=== PATIENT | female | born 1975 | race Hispanic/Latino ===

== ENCOUNTER 2019-11-21 23:37 | Emergency (ER) | payer BC ==
[2019-11-22 00:35] LABS: Absolute Lymphocytes (CBC) 2.2 K/uL (0.7-4.9); Basophils % 0.9 % (0-1.3); Hematocrit 37.6 % (36.0-45.0); Lymphocytes % 26.1 % (15.3-44.8); MPV 10.5 fL (7.6-11.3); RBC Red Blood Cell Count 4.52 M/uL (3.86-4.86)
[2019-11-22 00:36] LABS: Protime INR 0.98
[2019-11-22 00:48] LABS: ALT/SGPT 37 U/L (12-78); AST/SGOT 25 U/L (15-37); Albumin 3.3 g/dL (3.4-5.0); Alkaline Phosphatase 99 U/L (45-117); BUN Blood Urea Nitrogen 11 mg/dL (7-18); Bicarbonate 28 mmol/L (21-32); Bilirubin Direct < 0.1 mg/dL (0-0.2); Bilirubin Total 0.2 mg/dL (0.2-1.0); Glucose Level 199 mg/dL (74-106); Magnesium 2.1 mg/dL (1.8-2.4); NT PRO-BNP 14 pg/mL (<125); Potassium 3.4 mmol/L (3.5-5.1); Protein, Total 7.6 g/dL (6.4-8.2); Sodium Level 141 mmol/L (136-145); Troponin (Emerg Dept Use Only) < 0.02 ng/mL (0.0-0.045)
--- NOTE | 2019-11-22 01:40 | EDPHYS ---
Physician Documentation [facility] Name: Machelle Brito Age: 44 yrs Sex: Female : 1975 Arrival Date: 11/21/2019 Time: 23:42 Bed 8 Private MD: ED Physician Isidro Roblero HPI: 11/21 04:13 This 44 yrs old Female presents to ER via Ambulatory with complaints of Chest tw4 Tightness. 04:13 The patient presents with a history of heart racing. Context: The symptoms occur tw4 without known cause. Onset: The symptoms/episode began/occurred just prior to arrival. Duration: The patient or guardian reports multiple episodes, that wax and wane, with no pattern. Modifying factors: The symptoms are aggravated by nothing. The symptoms are alleviated by nothing. Associated signs and symptoms: Pertinent positives: chest pain. Severity of symptoms: At their worst the symptoms were mild in the emergency department the symptoms have resolved. The patient has not experienced similar symptoms in the past. 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 - Social history:: Smoking status: Patient denies any tobacco usage or history of. Patient/guardian denies using alcohol, street drugs. ROS: 11/21 04:13 Constitutional: Negative for fever, chills, and weight loss, Eyes: Negative for injury, tw4 pain, redness, and discharge, Respiratory: Negative for shortness of breath, cough, wheezing, and pleuritic chest pain, Abdomen/GI: Negative for abdominal pain, nausea, vomiting, diarrhea, and constipation, Back: Negative for injury and pain, MS/Extremity: Negative for injury and deformity, Skin: Negative for injury, rash, and discoloration, Neuro: Negative for headache, weakness, numbness, tingling, and seizure. Cardiovascular: Positive for chest pain, palpitations, Negative for edema, orthopnea. Exam: 04:13 Constitutional: This is a well developed, well nourished patient who is awake, alert, tw4 and in no acute distress. Head/Face: Normocephalic, atraumatic. Chest/axilla: Normal chest wall appearance and motion. Nontender with no deformity. No lesions are appreciated. Cardiovascular: Regular rate and rhythm with a normal S1 and S2. No gallops, murmurs, or rubs. Normal PMI, no JVD. No pulse deficits. Respiratory: Lungs have equal breath sounds bilaterally, clear to auscultation and percussion. No rales, rhonchi or wheezes noted. No increased work of breathing, no retractions or nasal flaring. Abdomen/GI: Soft, non-tender, with normal bowel sounds. No distension or tympany. No guarding or rebound. No evidence of tenderness throughout. Back: No spinal tenderness. No costovertebral tenderness. Full range of motion. MS/ Extremity: Pulses equal, no cyanosis. Neurovascular intact. Full, normal range of motion. Neuro: Awake and alert, GCS 15, oriented to person, place, time, and situation. Cranial nerves II-XII grossly intact. Motor strength 5/5 in all extremities. Sensory grossly intact. Cerebellar exam normal. Normal gait. Vital Signs: 11/20 23:51 BP 137 / 85; Pulse 89; Resp 16 S; Temp 98.7(O); Pulse Ox 98% on R/A; Weight 113.4 kg bb (R); Height 5 ft. 2 in. (157.48 cm) (R); Pain 5/10; 11/21 01:00 BP 141 / 100; Pulse 90; Resp 19; Pulse Ox 98% ; rr5 01:53 BP 121 / 70; Pulse 75; Resp 17; Temp 97.9; Pulse Ox 99% ; rr5 11/20 23:51 Body Mass Index 45.73 (113.40 kg, 157.48 cm) bb MDM: 11/20 23:53 Patient medically screened. tw4 11/21 04:13 Differential diagnosis: arrythmia, dehydration, stress disorder. Data reviewed: vital tw4 signs, nurses notes. Data reviewed: lab test result(s), cardiac enzymes, electrolytes, hepatic panel. Data interpreted: Pulse oximetry: Interpretation: normal. Test interpretation: by ED physician or midlevel provider: not applicable. Counseling: I had a detailed discussion with the patient and/or guardian regarding: the historical points, exam findings, and any diagnostic results supporting the discharge/admit diagnosis. Special discussion: I discussed with the patient/guardian in detail that at this point there is no indication for admission to the hospital. It is understood, however, that if the symptoms persist or worsen the patient needs to return immediately for re-evaluation. Special discussion: Based on the patient's history, exam, and Dx evaluation, there is no indication for emergent intervention or inpatient Tx. It is understood by the patient/guardian that if the Sx's persist or worsen they need to return immediately for re-evaluation. 11/20 23:44 Order name: Basic Metabolic Panel; Complete Time: 01:37 11/21 01:37 Interpretation: Normal except: K 3.4; GLUC 199; GFR 67. 11/20 23:44 Order name: CBC with Diff; Complete Time: 01:37 11/21 01:38 Interpretation: Within normal limits. 11/20 23:44 Order name: LFT's; Complete Time: 01:37 11/21 01:37 Interpretation: Normal except: ALB 3.3; GLOB 4.3; A/G 0.8. 11/20 23:44 Order name: Magnesium; Complete Time: 01:37 11/21 01:38 Interpretation: Within normal limits: MG 2.1. 11/20 23:44 Order name: NT PRO-BNP; Complete Time: 01:37 11/21 01:38 Interpretation: Within normal limits: NT PRO-BNP 14. 11/20 23:44 Order name: PT-INR; Complete Time: 01:37 11/21 01:38 Interpretation: Within normal limits: PT 11.6. 11/20 23:44 Order name: Troponin (emerg Dept Use Only); Complete Time: 01:37 11/21 01:38 Interpretation: Within normal limits: TROPED < 0.02. 11/20 23:44 Order name: XRAY Chest (1 view) 11/20 23:44 Order name: EKG; Complete Time: 23:45 11/20 23:44 Order name: Cardiac monitoring; Complete Time: 00:18 tw4 04/22 23:44 Order name: EKG - Nurse/Tech; Complete Time: 00:05 4 11/20 23:44 Order name: IV Saline Lock; Complete Time: 00:18 4 11/20 23:44 Order name: Labs collected and sent; Complete Time: 00:18 4 11/20 23:44 Order name: O2 Per Protocol; Complete Time: 00:06 4 11/20 23:44 Order name: O2 Sat Monitoring; Complete Time: 00:06 4 EC:13 Rate is 91 beats/min. Rhythm is regular. QRS [place] is Normal. LA interval is normal. QRS tw4 interval is normal. QT interval is normal. No Q waves. T waves are Normal. No ST changes noted. Clinical impression: Normal ECG. Interpreted by me. Reviewed by me. Administered Medications: 01:45 Drug: Potassium Effervescent Tablet 50 mEq Route: PO; rr5 01:57 Follow up: Response: No adverse reaction; Medication administered at discharge. rr5 Disposition: 11/22/19 01:39 Discharged to Home. Impression: Palpitations, Hypokalemia. - Condition is Stable. - Discharge Instructions: Potassium Content of Foods, Holter Monitoring, Palpitations, Palpitations, [id number], Hypokalemia, Cardiac Event Monitoring. - Medication Reconciliation Form, Thank You Letter, Antibiotic Education, Prescription Opioid Use form. - Follow up: Private Physician; When: Upon discharge from the Emergency Department; Reason: Recheck today's complaints, Continuance of care, Re-evaluation by your physician. Follow up: Garfield Flores MD; When: 1 week; Reason: Recheck today's complaints, Continuance of care, Re-evaluation by your physician. Follow up: Gaurav Cerna MD; When: 1 week; Reason: Recheck today's complaints, Continuance of care, Re-evaluation by your physician. - Problem is new. - Symptoms have improved. Signatures: Dispatcher [employer] EDMachelle Guajardo, RN RN Isidro Marina MD MD tw4 Zeeshan Dietrich RN RN rr5 Corrections: (The following items were deleted from the chart) 01:39 01:39 11/22/2019 01:39 Discharged to Home. Impression: Palpitations; Hypokalemia. tw4 Condition is Stable. Forms are Medication Reconciliation Form, Thank You Letter, Antibiotic Education, Prescription Opioid Use. Follow up: Private Physician; When: Upon discharge from the Emergency Department; Reason: Recheck today's complaints, Continuance of care, Re-evaluation by your physician. Problem is new. Symptoms have improved. tw4 01:58 01:39 11/22/2019 01:39 Discharged to Home. Impression: Palpitations; Hypokalemia. rr5 Condition is Stable. Discharge Instructions: Potassium Content of Foods, Holter Monitoring, Palpitations, Palpitations, [id number], Hypokalemia, Cardiac Event Monitoring. Forms are Medication Reconciliation Form, Thank You Letter, Antibiotic Education, Prescription Opioid Use. Follow up: Private Physician; When: Upon discharge from the Emergency Department; Reason: Recheck today's complaints, Continuance of care, Re-evaluation by your physician. Follow up: Garfield Flores; When: 1 week; Reason: Recheck today's complaints, Continuance of care, Re-evaluation by your physician. Follow up: Gaurav Cerna; When: 1 week; Reason: Recheck today's complaints, Continuance of care, Re-evaluation by your physician. Problem is new. Symptoms have improved. tw4
--- NOTE | 2019-11-22 01:40 | ER ---
Nurse's Notes [facility] Name: Machelle Brito Age: 44 yrs Sex: Female : 1975 Arrival Date: 11/21/2019 Time: 23:42 Bed 8 Private MD: Diagnosis: Palpitations;Hypokalemia Presentation: 11/20 23:51 Chief complaint: Patient states: she has been feeling intermittent heart fluttering the bb last couple of days which got worse tonight with some chest pain radiating to her back for a few seconds. Coronavirus screen: Proceed with normal triage. Ebola Screen: No symptoms or risks identified at this time. Initial Sepsis Screen: Does the patient meet any 2 criteria? No. Patient's initial sepsis screen is negative. Does the patient have a suspected source of infection? No. Patient's initial sepsis screen is negative. Risk Assessment: Do you want to hurt yourself or someone else? Patient reports no desire to harm self or others. Onset of symptoms was November 19, 2019. 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 - Social history:: Smoking status: Patient denies any tobacco usage or history of. Patient/guardian denies using alcohol, street drugs. Screenin/23 00:19 Abuse screen: Denies threats or abuse. Denies injuries from another. Nutritional rr5 screening: No deficits noted. Tuberculosis screening: No symptoms or risk factors identified. Fall Risk IV access (20 points). Total Sigala Fall Scale indicates No Risk (0-24 pts). Assessment: 00:00 General: Appears in no apparent distress. comfortable, Behavior is calm, cooperative, rr5 appropriate for age. 00:00 Pain: Complains of pain in chest Pain radiates to back Pain Quality of pain is rr5 described as aching, Pain began gradually, Is intermittent. Neuro: Level of Consciousness is awake, alert, obeys commands, Oriented to person, place, time, situation, Appropriate for age. Cardiovascular: Reports chest pain, Capillary refill < 3 seconds Patient's skin is warm and dry. Respiratory: Airway is patent Respiratory effort is even, unlabored, Respiratory pattern is regular, symmetrical. GI: No signs and/or symptoms were reported involving the gastrointestinal system. : No signs and/or symptoms were reported regarding the genitourinary system. EENT: No signs and/or symptoms were reported regarding the EENT system. Derm: Skin is intact, is healthy with good turgor, Skin temperature is warm. 01:00 Reassessment: Patient appears in no apparent distress at this time. No changes from rr5 previously documented assessment. Patient is alert, oriented x 3, equal unlabored respirations, skin warm/dry/pink. awaiting for result. 01:56 Reassessment: Patient appears in no apparent distress at this time. Patient is alert, rr5 oriented x 3, equal unlabored respirations, skin warm/dry/pink. discharge instruction given and explained without complaints made. Vital Signs: 11/20 23:51 BP 137 / 85; Pulse 89; Resp 16 S; Temp 98.7(O); Pulse Ox 98% on R/A; Weight 113.4 kg bb (R); Height 5 ft. 2 in. (157.48 cm) (R); Pain 5/10; 11/21 01:00 BP 141 / 100; Pulse 90; Resp 19; Pulse Ox 98% ; rr5 01:53 BP 121 / 70; Pulse 75; Resp 17; Temp 97.9; Pulse Ox 99% ; rr5 11/20 23:51 Body Mass Index 45.73 (113.40 kg, 157.48 cm) bb ED Course: 11/20 23:42 Patient arrived in ED. ag3 23:42 Isidro Roblero MD is Attending Physician. tw4 23:54 Triage completed. bb 23:54 Arm band placed on Patient placed in an exam room, on a stretcher, on pulse oximetry. bb 23:57 Zeeshan Dietrich RN is Primary Nurse. rr5 11/21 00:06 EKG done, by ED staff, reviewed by Isidro Roblero MD. ds4 00:09 Inserted saline lock: 20 gauge in right forearm, using aseptic technique. Blood rr5 collected. 00:09 No provider procedures requiring assistance completed. Patient maintains SpO2 rr5 saturation greater than 95% on room air. 00:14 XRAY Chest (1 view) In Process Unspecified. EDMS 00:19 Patient has correct armband on for positive identification. Placed in gown. Bed in low rr5 position. Call light in reach. radiation monitor on. Pulse ox on. NIBP on. 01:39 Garfield Flores MD is Referral Physician. tw4 01:39 Gaurav Ceran MD is Referral Physician. tw4 01:58 IV discontinued, intact, bleeding controlled, No redness/swelling at site. Pressure rr5 dressing applied. Administered Medications: 01:45 Drug: Potassium Effervescent Tablet 50 mEq Route: PO; rr5 01:57 Follow up: Response: No adverse reaction; Medication administered at discharge. rr5 Outcome: 01:39 Discharge ordered by . tw4 01:57 Discharged to home ambulatory. rr5 01:57 Condition: stable 01:57 Discharge instructions given to patient, Instructed on discharge instructions, follow up and referral plans. Demonstrated understanding of instructions, follow-up care. 01:58 Patient left the ED. rr5 Signatures: Dispatcher [employer] EDMS Machelle Nix, RN RN Benedict Ramirez ds4 Isidro Roblero MD MD tw4 Maile Metz3 Zeeshan Dietrich, RN RN rr5
[2019-11-22] MEDS ORDERED: POTASSIUM 25 MEQ EFFERV TAB ONE (01:47)
[2019-11-22 02:20] VITALS: BP 121/70; TEMP 97.9; O2SAT 99
--- NOTE | 2019-11-22 07:58 | EKG ---
Test Date: 2019-11-22 Test Time: 00:03:10 Drafter Mechanical: CANDELARIO MEASUREMENT RESULTS: Intervals: Rate: 91 FL: 176 QRSD: 88 QT: 344 QTc: 423 Gile: P: 18 FL: 176 QRS: -20 T: 25 INTERPRETIVE STATEMENTS: Normal sinus rhythm Moderate voltage criteria for LVH, may be normal variant Borderline ECG No previous ECG available for comparison Electronically Signed On 11-22-19 07:58:11 CDT by Garfield Flores
--- NOTE | 2019-11-22 10:55 | RAD REPORT ---
EXAM DESCRIPTION: RAD - Chest Single View - 11/22/2019 12:14 am CLINICAL HISTORY: CHEST PAIN Chest pain. COMPARISON: CHEST PA AND LAT 2 VIEW dated 08/11/2015 FINDINGS: Portable technique limits examination quality. The lungs are mildly underinflated but grossly clear. The heart is normal in size. No displaced fract ures.
== END 2019-11-22 01:58 | disposition home or self-care (01) ==
LOC: ER 23:37
DX: E87.6 Hypokalemia (principal)
CPT/HCPCS: 36415; 71045; 80048; 80076; 83735; 83880; 84484; 85025; 85610; 93005; 99285

== ENCOUNTER 2020-04-14 16:38 | Emergency (ER) | payer BC, OTHER ==
--- NOTE | 2020-04-14 17:47 | EDPHYS ---
Physician Documentation [facility] Name: Machelle Brito Age: 44 yrs Sex: Female : 1975 Arrival Date: 04/14/2020 Time: 16:40 Bed 23 Private MD: John Cha HPI: 04/14 20:45 This 44 yrs old Female presents to ER via Ambulatory with complaints of Flu jr8 Symptoms. 20:45 Onset: The symptoms/episode began/occurred gradually, 2 day(s) ago. Associated signs jr8 and symptoms: Pertinent positives: bodyaches, chills, headache, fatigue, loss of taste and smell, mild cough. Modifying factors: The patient symptoms are alleviated by nothing, the patient symptoms are aggravated by nothing. The patient has not experienced similar symptoms in the past. The patient has not recently seen a physician. Family member had tested COVID +. Historical: - Allergies: 17:12 No Known Allergies; iw - Home Meds: 17:12 None [Active]; iw - PMHx: 17:12 None; iw - PSHx: 17:12 Tubal ligation; iw - Immunization history:: Adult Immunizations not up to date. - Social history:: Smoking status: Patient denies any tobacco usage or history of. ROS: 20:45 Neck: Negative for injury, pain, and swelling, Cardiovascular: Negative for chest pain, jr8 palpitations, and edema, Abdomen/GI: Negative for abdominal pain, nausea, vomiting, diarrhea, and constipation, Back: Negative for injury and pain, MS/Extremity: Negative for injury and deformity, Skin: Negative for injury, rash, and discoloration. 20:45 Constitutional: Positive for body aches, chills, fatigue, malaise. 20:45 Respiratory: Positive for cough, Negative for dyspnea on exertion, shortness of breath, sputum production, wheezing. 20:45 Neuro: Positive for headache. Exam: 20:45 Eyes: Pupils equal round and reactive to light, extra-ocular motions intact. Lids and jr8 lashes normal. Conjunctiva and sclera are non-icteric and not injected. Cornea within normal limits. Periorbital areas with no swelling, redness, or edema. ENT: Nares patent. No nasal discharge, no septal abnormalities noted. Tympanic membranes are normal and external auditory canals are clear. Oropharynx with no redness, swelling, or masses, exudates, or evidence of obstruction, uvula midline. Mucous membranes moist. Neck: Trachea midline, no thyromegaly or masses palpated, and no cervical lymphadenopathy. Supple, full range of motion without nuchal rigidity, or vertebral point tenderness. No Meningismus. Cardiovascular: Regular rate and rhythm with a normal S1 and S2. No gallops, murmurs, or rubs. Normal PMI, no JVD. No pulse deficits. Respiratory: Lungs have equal breath sounds bilaterally, clear to auscultation and percussion. No rales, rhonchi or wheezes noted. No increased work of breathing, no retractions or nasal flaring. Abdomen/GI: Soft, non-tender, with normal bowel sounds. No distension or tympany. No guarding or rebound. No evidence of tenderness throughout. Back: No spinal tenderness. No costovertebral tenderness. Full range of motion. Skin: Warm, dry with normal turgor. Normal color with no rashes, no lesions, and no evidence of cellulitis. MS/ Extremity: Pulses equal, no cyanosis. Neurovascular intact. Full, normal range of motion. Neuro: Awake and alert, GCS 15, oriented to person, place, time, and situation. Cranial nerves II-XII grossly intact. Motor strength 5/5 in all extremities. Sensory grossly intact. Cerebellar exam normal. Normal gait. Vital Signs: 17:09 BP 149 / 93; Pulse 95; Resp 16 S; Temp 98.5; Pulse Ox 99% on R/A; Weight 113.4 kg; iw Height 5 ft. 2 in. (157.48 cm); 17:09 Body Mass Index 45.73 (113.40 kg, 157.48 cm) iw MDM: 17:00 Patient medically screened. [facility] 17:45 Data reviewed: vital signs, nurses notes, lab test result(s), and as a result, I will [facility] discharge patient. Data interpreted: Pulse oximetry: on room air is 98 %. Interpretation: normal. Counseling: I had a detailed discussion with the patient and/or guardian regarding: the historical points, exam findings, and any diagnostic results supporting the discharge/admit diagnosis, lab results, the need for outpatient follow up, a family practitioner, to return to the emergency department if symptoms worsen or persist or if there are any questions or concerns that arise at home. ED course: Discussed with patient that she needs to start on Vit. C, zinc, and Vitamin D if available. Can be helpful for covid. Will also start on ICS. Needs to f/u with PCP. To watch her breathing status closely. If worse to come back for reevaluation . Administered Medications: No medications were administered Disposition: 04/15 08:20 Co-signature as Attending Physician, John Lopez MD I agree with the assessment and rosana plan of care. Disposition: 04/14/20 17:47 Discharged to Home. Impression: Encounter for screening for other viral diseases, Acute upper respiratory infection, unspecified. - Condition is Stable. - Discharge Instructions: Upper Respiratory Infection, Adult, COVID-19. - Prescriptions for Flovent HFA 110 mcg/actuation Inhalation Aerosol - inhale 2 puffs by INHALATION route 2 times per day for 7 days; 1 Inhaler. - Medication Reconciliation Form, Thank You Letter, Antibiotic Education, Prescription Opioid Use form. - Follow up: Private Physician; When: 7 - 10 days; Reason: Recheck today's complaints, Continuance of care, Re-evaluation by your physician. - Problem is new. - Symptoms have improved. Signatures: Dispatcher [employer] [facility] John Lopez MD MD cha Munoz, Edgar, RN RN Maria Eugenia Johnson RN RN iw Roszak, Josh, PA PA jr8 Corrections: (The following items were deleted from the chart) 04/14 18:12 17:30 CORONAVIRUS+MR.LAB.BRZ ordered. [facility] 18:18 17:47 04/14/2020 17:47 Discharged to Home. Impression: Encounter for screening for em other viral diseases; Acute upper respiratory infection, unspecified. Condition is Stable. Forms are Medication Reconciliation Form, Thank You Letter, Antibiotic Education, Prescription Opioid Use. Follow up: Private Physician; When: 7 - 10 days; Reason: Recheck today's complaints, Continuance of care, Re-evaluation by your physician. Problem is new. Symptoms have improved. jr8
--- NOTE | 2020-04-14 17:47 | ER ---
Nurse's Notes [facility] Name: Machelle Brito Age: 44 yrs Sex: Female : 1975 Arrival Date: 04/14/2020 Time: 16:40 Bed 23 Private MD: Diagnosis: Encounter for screening for other viral diseases;Acute upper respiratory infection, unspecified Presentation: 04/14 17:09 Chief complaint: Patient states: has flu like symptoms, cough, body aches, fatigue, iw headache, lost sense of taste and smell a couple weeks ago, had a family member test positive for COVID. Coronavirus screen: cough unrelated to allergies, fatigue, headache, loss of taste or smell, Client presents with at least one sign or symptom that may indicate coronavirus-19. Standard/surgical mask placed on the client. Provider contacted for isolation considerations. The client denies any previous COVID testing. Ebola Screen: Patient negative for fever greater than or equal to 101.5 degrees Fahrenheit, and additional compatible Ebola Virus Disease symptoms Patient denies exposure to infectious person. Patient denies travel to an Ebola-affected area in the 21 days before illness onset. No symptoms or risks identified at this time. Initial Sepsis Screen: Does the patient meet any 2 criteria? No. Patient's initial sepsis screen is negative. Does the patient have a suspected source of infection? No. Patient's initial sepsis screen is negative. Risk Assessment: Do you want to hurt yourself or someone else? Patient reports no desire to harm self or others. Onset of symptoms was March 2020. 17:09 Method Of Arrival: Ambulatory iw 17:09 Acuity: DONG 4 iw Historical: - Allergies: 17:12 No Known Allergies; iw - Home Meds: 17:12 None [Active]; iw - PMHx: 17:12 None; iw - PSHx: 17:12 Tubal ligation; iw - Immunization history:: Adult Immunizations not up to date. - Social history:: Smoking status: Patient denies any tobacco usage or history of. Screenin:21 Abuse screen: Denies threats or abuse. Nutritional screening: No deficits noted. em Tuberculosis screening: No symptoms or risk factors identified. Fall Risk None identified. Assessment: 17:50 General: Appears in no apparent distress. comfortable, Behavior is calm, cooperative, em appropriate for age, Denies fever. Pain: Complains of pain in "body aches". Neuro: Level of Consciousness is awake, alert, obeys commands, Oriented to person, place, time, situation, Appropriate for age. Cardiovascular: Capillary refill < 3 seconds Patient's skin is warm and dry. Respiratory: Airway is patent Respiratory effort is even, unlabored, Respiratory pattern is regular, symmetrical, Denies shortness of breath. GI: Abdomen is round non-distended. Derm: Skin is intact, is healthy with good turgor, Skin is pink, warm \\T\\ dry. Musculoskeletal: Capillary refill < 3 seconds, Range of motion: intact in all extremities. 18:10 Reassessment: refused covid swab after provider saw pt, pt will self quarantine until em symptoms are gone, pt works from home. Vital Signs: 17:09 BP 149 / 93; Pulse 95; Resp 16 S; Temp 98.5; Pulse Ox 99% on R/A; Weight 113.4 kg; iw Height 5 ft. 2 in. (157.48 cm); 17:09 Body Mass Index 45.73 (113.40 kg, 157.48 cm) ED Course: 16:40 Patient arrived in ED. ag5 17:00 [facility] Hutchinson [facility]. jr8 17:00 John Lopez MD is Attending Physician. jr8 17:07 Rajesh Khan, RN is Primary Nurse. em 17:12 Triage completed. iw 17:12 Arm band placed on. iw 17:21 Patient has correct armband on for positive identification. em 18:17 No provider procedures requiring assistance completed. Patient did not have IV access em during this emergency room visit. Administered Medications: No medications were administered Outcome: 17:47 Discharge ordered by . [email or web address] 18:17 Discharged to home ambulatory. em 18:17 Condition: good 18:17 Discharge instructions given to patient, Instructed on discharge instructions, follow up and referral plans. medication usage, Demonstrated understanding of instructions, follow-up care, medications, Prescriptions given X 1. 18:18 Patient left the ED. em Signatures: Rajesh Khan, RN RN Maria Eugenia Arce RN RN Scott Hutchinson PA PA [facility] Rosanna Joe ag5
[2020-04-14 19:17] VITALS: BP 149/93; TEMP 98.5; O2SAT 99
== END 2020-04-14 18:18 | disposition home or self-care (01) ==
LOC: ER 16:38
DX: J06.9 Acute upper respiratory infection, unspecified (principal); Z53.20 Procedure and treatment not carried out because of patient's decision for unspecified reasons
CPT/HCPCS: 99282